=== PATIENT | female | born 1990 | race Caucasian/White ===

== ENCOUNTER 2016-10-12 17:18 | Observation (INO) | payer BC ==
[~2016-10-12] VITALS: Ht 162.6 cm; Wt 76.7 kg
--- NOTE | ~2016-10-12 | HP ---
PATIENT'S NAME: SWAPNA [facility] AGE: 25 Y [address] ROOM: [place] [address] LOCATION: [facility] ADMIT DATE: 10/12/2016 History & Physical DISCHARGE DATE: 10/12/2016 FAMILY PHYSICIAN: Arlette Chambers MD ATTENDING PHYSICIAN: Padmini Escobedo DATE OF SERVICE: 10/12/2016 This is an outpatient note. SUBJECTIVE: This is a 25-year-old 1 female at 35 weeks and 3 days' gestation, who is here with complaints of possible leakage of fluid. She had one gush of fluid, which stopped. She has had no vaginal bleeding and no contractions. She has had good movement. She is known breech by ultrasound. OBJECTIVE: VITAL SIGNS: Stable. She is afebrile. STERILE SPECULUM: Negative pooling. Negative nitrazine. Negative ferning. Cervix long thick closed and high. She is breech by Darian's. heart rate reassuring. Category I tracing and TOCO shows no contractions. ASSESSMENT: 1. Intrauterine at 35 weeks and 3 days. 2. Negative premature rupture of membranes. 3. Breech. PLAN: Home with labor and rupture of membranes precautions. The patient has an appointment with Dr. Chambers scheduled next week. MD KALEN CLARKE/smith /[id number] D: [id number] T: [id number] HISTORY & PHYSICAL
== END 2016-10-12 18:50 | disposition disaster alternative care site (69) ==
LOC: GOBS 17:18
PROVIDERS: ADMIT Obstetrics & Gynecology
DX: O32.1XX0 Maternal care for breech presentation, not applicable or unspecified (principal); Z3A.35 35 weeks gestation of pregnancy
CPT/HCPCS: G0463

== ENCOUNTER 2016-10-26 06:44 | Inpatient (IN) | payer BC ==
[~2016-10-26] VITALS: Ht 162.6 cm; Wt 75.9 kg
--- NOTE | ~2016-10-26 | OR ---
PATIENT'S NAME: SWAPNA [facility]IN [facility] AGE: 25 Y [address] ROOM: [place] [address] LOCATION: [facility] ADMIT DATE: 10/26/2016 OR/Procedure Report DISCHARGE DATE: FAMILY PHYSICIAN: PHYSICIAN, NO ATTENDING PHYSICIAN: Padmini Escobedo SURGEON: Arlette Chambers MD NOC ENGINEER: Padmini Escobedo MD. DATE OF PROCEDURE: 10/26/2016 PROCEDURE PERFORMED: Primary low transverse section. PREOPERATIVE DIAGNOSES: 1. Intrauterine at 37 weeks. 2. Spontaneous rupture of membranes. 3. Breech presentation. The patient previously declined external cephalic version. POSTOPERATIVE DIAGNOSES: 1. Intrauterine at 37 weeks. 2. Spontaneous rupture of membranes. 3. Breech presentation. The patient previously declined external cephalic version. ESTIMATED BLOOD LOSS: 800 mL. SPECIMENS: Cord blood and cord pH. FINDINGS: A viable female infant, weighing 6 pounds 2 ounces. score 8 and 9. Intact placenta with 3-vessel cord. Uterus with possible arcuate shape. Normal-appearing tubes and ovaries. ANTIBIOTICS: 2 g of Ancef. ANESTHESIA: Spinal. COMPLICATIONS: None. DISPOSITION: The patient and remained in room for a TAP block at the completion of the procedure. INDICATION FOR THE PROCEDURE: The patient is a 25-year-old, G1, P0, who presented on the morning of October 26, 2016, with complaints of loss of fluid. This was confirmed upon presentation to the hospital. The patient was also complaining of contractions. She had previously been noted to have breech presentation in the office on 2 ultrasounds and had been counseled regarding PATIENT'S NAME: SWAPNA AUSTIN [facility] AGE: 25 Y [address] ROOM: [place] [address] LOCATION: [facility] ADMIT DATE: 10/26/2016 OR/Procedure Report DISCHARGE DATE: FAMILY PHYSICIAN: PHYSICIAN, NO ATTENDING PHYSICIAN: Padmini Escobedo options for management. She had declined an external cephalic version. She was aware of the risks and benefits of the procedure to include, but not limited to risks of section to include, but not limited to, risk of bleeding, risk of thromboembolism, risk of injury to bowel and bladder, risk of infection, risks associated with anesthesia; and she desired to proceed. DESCRIPTION OF PROCEDURE: The patient was taken back to the operating room, where a time-out was performed to confirm correct patient and correct procedure. Spinal anesthesia was established without difficulty. She was then placed in the dorsal supine position with leftward tilt of the hips. She was prepped and draped in the usual sterile fashion. Anesthesia was tested and found to be adequate. The knife was used to make an incision in the skin and carried down to the underlying fascia. Fascia was nicked on both sides in the midline. Fascial incision was extended with Woodson scissors. The fascia was then lifted using Claire clamps and dissected from the underlying rectus muscles both superior and inferiorly. Blunt dissection was used to enter the peritoneum. Peritoneal opening was spread bluntly. Bladder blade and Rich retractor were placed. Uterine incision was made using a clean knife. It was a low transverse incision. Incision was spread in a cephalocaudal direction. Fluid again was noted to be clear. The feet were grasped. Fetus was noted to be in breech presentation with back down. feet were delivered out of the incision followed by the remainder of the body. The patient had nuchal arms x2. was rotated and these were brought down across the chest. The head then had to be rotated to be able to be delivered out of the incision as well. The was initially noted to have poor tone and minimal respiratory effort. Cord was clamped and cut. was handed off to the awaiting nurses and was noted to have a vigorous cry at that time. Cord pH and cord blood were obtained. IV Pitocin was started per protocol. Gentle traction was placed on the cord. The uterus was massaged and the placenta was expressed intact. The uterus was then exteriorized. The uterus was cleared of all remaining clots and debris. Uterus was noted to have a slightly enlarged right side, that gradually reduced with possible arcuate shape. There were no internal septations noted. Tubes and ovaries appeared normal bilaterally. Uterus was then closed in a 2 layer fashion using 0 Vicryl in a running locked and then running nonlocked fashion. Incision appeared hemostatic. The uterus was replaced back into the abdomen. Bilateral pericolic gutters were cleared of clots. Uterine incision was again inspected and appeared hemostatic. The fascia was then closed in a running nonlocked fashion using 0 Vicryl. Subcutaneous tissue was irrigated and any areas of bleeding were cauterized with Bovie cautery. The skin was reapproximated using 4-0 Vicryl on a Matias needle. Mastisol and Steri-Strips were applied to the incision. All needle, sponge, and instrument counts were noted to be correct x2. Then, the patient remained in the room for a TAP block. PATIENT'S NAME: SWAPNA AUSTIN [facility] AGE: 25 Y [address] ROOM: [address] [address] LOCATION: [facility] ADMIT DATE: 10/26/2016 OR/Procedure Report DISCHARGE DATE: FAMILY PHYSICIAN: PHYSICIAN, JEAN MARIE ATTENDING PHYSICIAN: Padmini Escobedo ARLETTE CHAMBERS MD GT/caseyl /[id number] d: 10/26/16 1834 t: 10/27/16 1943, OPERATIVE SUMMARY
[2016-10-26 07:41] LABS: BASOPHIL # 0.1 K/uL (0.0-0.2); BASOPHIL % 0.4 %; EOSINOPHIL # 0.1 K/uL (0.0-0.5); EOSINOPHIL % 0.7 %; HEMATOCRIT 37.8 % (33.0-46.0); HEMOGLOBIN 13.1 g/dL (11.0-15.0); IMMATURE GRANULOCYTE # 0.2 K/uL (0.0-0.3); IMMATURE GRANULOCYTE % 1.6 %; LYMPHOCYTE # 1.9 K/uL (0.8-4.0); MCH 32.8 pg (27.0-34.0); MCHC 34.7 gm/dL (32.0-36.5); MCV 94.7 fl (83.0-98.0); MONOCYTE # 0.9 K/uL (0.0-1.0); MONOCYTE % 6.9 %; MPV 10.9 fl (9.4-12.4); NEUTROPHIL # (ANC) 9.4 K/uL (1.8-7.8); NEUTROPHIL % 75.4 %; NRBC % 0 /100WBC (0-0.00); PLATELET COUNT 212 K/uL (150-450); RBC 3.99 M/uL (3.50-5.00); RDW-CV 12.3 % (11.9-14.6); WBC 12.5 K/uL (4.0-11.0)
[2016-10-26] MEDS ORDERED: CALCIUM500 MG PO (07:59)
[2016-10-26] MEDS ORDERED: PRENATAL 1+1)(P1 TAB PO (07:59)
[2016-10-26 10:12] LABS: PCO2 44 mmHg (35-45)
[2016-10-26 10:13] LABS: BICARBONATE 21.7 mmol/L (18.0-23.0); PO2 26 mmHg (80-90)
--- NOTE | 2016-10-26 17:33 | NUR ---
Last VS: T:97.6 P:88 R: 14 BP: 135/69 Pain ratin. Last pain med: Percocet Medicated at: Effective: Yes R Lung sounds: clear, L Lung sounds: Fundus: firm, 2 above Lochia: moderate, rubra Breasts: soft Nipples: no problem Incision: microfoam dressing dry/intact Bowel sounds: Passing flatus: Voiding well: yes Significant event: *.
[2016-10-27 04:57] LABS: BASOPHIL % 0.1 %; EOSINOPHIL # 0.1 K/uL (0.0-0.5); EOSINOPHIL % 0.5 %; HEMOGLOBIN 9.2 g/dL (11.0-15.0); IMMATURE GRANULOCYTE # 0.1 K/uL (0.0-0.3); IMMATURE GRANULOCYTE % 1.2 %; LYMPHOCYTE # 0.9 K/uL (0.8-4.0); LYMPHOCYTE % 9.3 %; MCV 97.5 fl (83.0-98.0); MONOCYTE # 0.6 K/uL (0.0-1.0); MONOCYTE % 6.4 %; MPV 9.6 fl (9.4-12.4); NEUTROPHIL # (ANC) 7.8 K/uL (1.8-7.8); NEUTROPHIL % 82.5 %; NRBC % 0 /100WBC (0-0.00); RDW-CV 12.5 % (11.9-14.6); WBC 9.4 K/uL (4.0-11.0)
[2016-10-27 05:02] LABS: HEMATOCRIT 27.3 % (33.0-46.0); MCH 32.9 pg (27.0-34.0); MCHC 33.7 gm/dL (32.0-36.5); PLATELET COUNT 151 K/uL (150-450)
--- NOTE | 2016-10-27 12:25 | NUR ---
Introduced self to mom and dad and explained care management role. Parents denied the need for any resources at home. Maternal grandparent avalaible to provide assistance. Mom is a teacher and will return to work in January. Daycare arrangements have been made. Provided and reviewed with Mom handout on depression. Explained importance of contacting insurance company within 30 days to add baby to policy. Congratulated family and thanked them for chosing [facility]. Will continue to follow and offer support.
--- NOTE | 2016-10-27 17:22 | NUR ---
Last VS: T:98.2 P:105 R: 16 BP: 111/71 Pain ratin>3 Last pain med: Percocet Medicated at: 1535 Effective: Yes R Lung sounds: , L Lung sounds: Fundus: FIRM Lochia: SMALL(passed small couple clots) Breasts: SOFT Nipples: INTACT Incision appearance: APPROXIMATED Incision closure: SUTURE/STERI(horizontal) Bowel sounds: Passing flatus: Y Voiding well: Y Significant event: *.UP AD LYUDMILA, WALKED HALLS THIS AFTERNOON(after 1530 dose Percocet) SHOULDER PAIN BETTER. NOT SURE IF PASSED FLATUS BUT DOESN'T THINK SO. SHOWER DONE, DRSG REMOVED.
--- NOTE | 2016-10-27 17:37 | NUR ---
Last VS: T:98.2 P:105 R: 16 BP: 111/71 Pain ratin>3 Last pain med: Percocet Medicated at: [id number] Effective: Yes R Lung sounds: , L Lung sounds: Fundus: FIRM Lochia: SMALL (passed couple small 1cm clots this aftyernoon) Nipples: INTACT Incision appearance: C/D/I Incision closure: SUTURE/STERI(horizontal) Bowel sounds: Passing flatus: Y Voiding well: Y Significant event: *.UP AD LYUDMILA, WALKED HALLS THIS AFTERNOON, STATES NOT SURE IF PASSED GAS. BOWEL SOUNDS HYPOACTIVE. STATES RT)SHOULDER PAIN BETTER. SHOWER DONE AT 1400.
--- NOTE | 2016-10-28 17:29 | NUR ---
Last VS: T:98.2 P:103 R: 16 BP: 142/77 Pain ratin Last pain med: Motrin Medicated at: 1521 Effective: Yes R Lung sounds: , L Lung sounds: Fundus: FIRM Lochia: SMALL Breasts: SOFT/FILLING Nipples: TENDER/INTACT (has nipple oint's) Incision appearance: C/D/I Incision closure: GIO/STERI(horizontal steristrips) Bowel sounds: Passing flatus: Y Voiding well: Y Significant event: *.UP AD LYUDMILA, SHOWER/BED DONE. RT/SHOULER/NECK STARTED TO ACHE AGAIN THIS AFTERNOON, SO ICE PK APLLIED/PT REQUEST.
[2016-10-29] MEDS ORDERED: APNO TOP (07:24)
[2016-10-29] MEDS ORDERED: MOTRIN800 MG PO (07:24)
[2016-10-29] MEDS ORDERED: PERCOCET 5-3251 EACH PO (07:24)
[2016-10-29] MEDS ORDERED: FEOSOL325 MG PO (07:25)
== END 2016-10-29 13:35 | disposition disaster alternative care site (69) | DRG 766 ==
LOC: GOBM 06:44 → GOBS 06:44 → GOBM 06:45 → GOBS 10-29 13:35 → GOBM 11-13 06:27
PROVIDERS: Obstetrics & Gynecology; ADMIT Obstetrics & Gynecology
PROC: 10D00Z1 Extraction of Products of Conception, Low, Open Approach (ICD-10-PCS; principal; 2016-10-26)
DX: O32.1XX0 Maternal care for breech presentation, not applicable or unspecified (principal); O42.92 Full-term premature rupture of membranes, unspecified as to length of time between rupture and onset of labor; Z37.0 Single live birth; Z3A.37 37 weeks gestation of pregnancy
CPT/HCPCS: J0690; J1885; J2001; J2405; J7120